=== PATIENT | male | born 1955 | race Hispanic/Latino ===

== ENCOUNTER 2017-09-22 11:57 | Observation (INO) | payer OTHER, SELFPAY ==
[2017-09-22 12:47] LABS: Bilirubin Negative (Negative); Blood, Urine Trace (Negative); Glucose, Urine (Dipstick) Negative (Negative); Ketone, Urine Negative (Negative); Nitrite Negative (Negative); Protein, Urine (Dipstick) Negative (Neg-Trace)
[2017-09-22 12:57] LABS: Bacteria/HPF None Seen HPF (None Seen); RBC/HPF 0-3 HPF (0-3); Squamous Epithelial None Seen HPF (0-3); WBC/HPF 0-3 HPF (0-3)
[2017-09-22 13:18] LABS: #Basophils 0.1 thou/uL (0.0-0.2); #Eosinphils 0.1 thou/uL (0.0-0.7); #Lymphocytes 1.2 thou/uL (1.20-3.40); #Monocytes 0.7 thou/uL (0.11-0.59); #Neutrophils 6.7 thou/uL (1.40-6.50); %Basophils 0.9 % (0.0-1.0); %Eosinophils 1.1 % (0.0-10.0); %Lymphocytes 14.2 % (21.0-51.0); %Monocytes 7.4 % (0.0-10.0); Hematocrit 42.1 % (42.0-52.0); Mean Platelet Volume 7.4 fL (7.4-10.4); Red Blood Cell (RBC) Count 4.76 mill/uL (4.70-6.10); White Blood Cell (WBC) Count 8.7 thou/uL (4.8-10.8)
--- NOTE | 2017-09-22 13:20 | ULT ---
ULTRASOUND TESTICULAR WITH DOPPLER: Date: 09/22/17 HISTORY: Right testicular pain. COMPARISON: None. TECHNIQUE: Real-time Vela scale and color with spectral analysis of the testicles performed with the linear tra nsducer. FINDINGS: Right testicle measures 3.8 x 3.1 x 2.7 cm. Left testicle measures 3.7 x 2.7 x 2.5 cm. Small epididy mal head cyst on the right. Both epididymides are visualized and have normal size. The right testicle is hypervascular, as well as the right epididymis. Small hydroceles bilaterally. Mild skin thickening asymmetric over the right testicle. IMPRESSION: Right-sided epididymal orchitis. POS: [facility]
[2017-09-22] MEDS ORDERED: Ciprofloxacin Lactate/D5W 400 mg/200 ml Premix ONE (13:29)
[2017-09-22 13:32] LABS: ALT (SGPT) 15 U/L (8-55); AST (SGOT) 13 U/L (5-34); Alkaline Phosphatase 78 U/L (40-150); Anion Gap 14 mmol/L (10-20); BUN (Urea Nitrogen) 12 mg/dL (8.4-25.7); Bilirubin, Total 0.4 mg/dL (0.2-1.2); Calc. Creatinine Clearance 0 mL/min (70-130); Carbon Dioxide 27 mmol/L (23-31); Chloride 103 mmol/L (98-107); Estimated GFR-MDRD Greater than 90; Protein, Total 6.9 g/dL (5.8-8.1)
[2017-09-22] MEDS ORDERED: Ondansetron HCl/PF 4 MG/2 ML Vial ONE (14:04)
[2017-09-22] MEDS ORDERED: Ondansetron ODT 4 MG TAB SL PRN (16:02)
[2017-09-22] MEDS ORDERED: Acetaminophen 325 MG TAB PO PRN (16:02)
[2017-09-22] MEDS ORDERED: Ondansetron HCl/PF 4 MG/2 ML Vial IVP PRN (16:02)
[2017-09-22 16:16] VITALS: BMI 31.7
[2017-09-22] MEDS ORDERED: HYDROcodone/Acetaminophen 5/325 mg Tablet PO PRN (16:53)
--- NOTE | 2017-09-22 18:58 | HP ---
DATE OF ADMISSION: 09/22/2017 ADMITTING PHYSICIAN: Dr. Merlin Escalante. PRIMARY CARE PHYSICIAN: Harpal. CHIEF COMPLAINT: Right testicular pain and flank pain. HISTORY OF PRESENT ILLNESS: Mr. Cotter is a 62-year-old gentleman, who came to the emergency [facility] this past Friday complaining of pain in his right testicle with no fever, no dysuria, no hemat uria, no urethral discharge. The patient noted that beginning last Friday he was having back and flank pain. His daughter is an RN and brought him into the health facility for assessment. Kassidy marcelino was diagnosed with UTI and given Bactrim and Rocephin. Cultures came back which showed a microbia l agent that was resistant to cephalosporins and Bactrim. The patient was started on Cipro p.o. Th e patient also has a history of BPH. He has not been on tamsulosin. He denies chest pain, shortnes s of breath, diaphoresis or any other review of systems. PAST MEDICAL HISTORY: Significant for essential hypertension. ALLERGIES: PENICILLINS. HOME MEDICATIONS: Lisinopril 10 mg every day, metoprolol 25 mg b.i.d., and recently tamsulosin 0.4 mg once a day. REVIEW OF SYSTEMS: The following complete review of systems was negative, unless otherwise mentioned in the HPI or belo w: Constitutional: Weight loss or gain, sense of well-being, ability to conduct usual activities, exer cise tolerance. Skin/Breast: Rash, itching, changes in hair growth or loss, nail changes, breast lumps, tenderness, swelling, nipple discharge. Eyes: Vision, double vision, tearing, blind spots, pain. ENT/Mouth: Headaches (location, time of onset, duration, precipitating factors), vertigo, lighthead edness, injury. Vision, double vision, tearing, blind spots, pain, nose bleeding, colds, obstructio n, discharge, dental difficulties, gingival bleeding, dentures, neck stiffness, pain, tenderness, ma sses in thyroid or other areas Cardiovascular: Precordial pain, substernal distress, palpitations, syncope, dyspnea on exertion, o rthopnea, nocturnal paroxysmal dyspnea, edema, cyanosis, hypertension, heart murmurs, varicosities, phlebitis, claudication. Respiratory: Pain, shortness of breath, wheezing, stridor, cough, hemoptysis, fever or night sweats Gastrointestinal: Poor appetite, dysphagia, indigestion, abdominal pain, heartburn, eructation, [place]izabeth sea, vomiting, hematemesis, jaundice, constipation, or diarrhea, abnormal stools (pelon-colored, promise y, bloody, greasy, foul smelling), flatulence, hemorrhoids, recent changes in bowel habits. Genitourinary: Urgency, frequency, dysuria, nocturia, hematuria, polyuria, oliguria, unusual (or ch angelo in) color of urine, stones, hesitancy, change in size of stream, dribbling, acute retention or incontinence, libido, potency. Musculoskeletal: Pain, swelling, redness or heat of muscles or joints, limitation, of motion, muscu lar weakness, atrophy, cramps. Neurologic/Psychiatric: Convulsions, paralyses, tremor, incoordination, parasthesias, difficulties with memory of speech, sensory or motor disturbances, or muscular coordination (ataxia, tremor), emo tional problems, anxiety, depression, previous psychiatric care, unusual perceptions, hallucinations . Allergy/Immunologic: Skin rash, anemia, bleeding tendency, polydipsia, polyuria, intolerance to hea t or cold. PHYSICAL EXAMINATION: VITAL SIGNS: Temperature of 99.1, blood pressure 152/92, pulse 60, respirations 18, satting 98% on room air. CONSTITUTIONAL: The patient is in no acute distress, pleasant, cooperative. HEENT: Normocephalic, atraumatic. EYES: PERRL. Extraocular muscles intact. Conjunctivae normal, sclerae are normal. ENT: Pharynx exam normal. Uvula exam normal. Tonsil exam normal. NECK: Full range of motion. Trachea midline. No carotid bruits. No meningeal signs. No JVD. CHEST: No wheezing, no rales, no rhonchi. CARDIOVASCULAR: Heart sounds normal, no murmurs, rubs or gallops. ABDOMEN: Nontender, nondistended. Normoactive bowel sounds x4. GENITOURINARY: The patient does have a hard right testicle. EXTREMITIES: There is some erythema present as well. Otherwise, no penile discharge. LABORATORY IMAGES: CBC shows a white count of 8.7, hemoglobin 14.3, hematocrit 42.1, platelets 159, 76% neutrophils. Chemistry: Sodium 140, potassium 4.3, chloride 103, CO2 of 27, BUN 12, creatinin e 0.75, glucose 99. C-reactive protein of 5.24. Urinalysis yellow, clear, trace blood, trace leuko cytes, no bacteria seen. Patient also had a testicular ultrasound which was negative for torsion an d a testicular ultrasound did show right-sided epididymal orchitis. ASSESSMENT: 1. Orchitis. 2. Possible acute pyelonephritis and benign prostatic hypertrophy and hypertension. PLAN: The patient admitted to medical unit. He will be treated with IV ciprofloxacin. We will con tinue the patient's home medication regimen to treat his hypertension. The genitourinary physician has been consulted. The Urology will assess and we will follow their suggestions accordingly.
[2017-09-22] MEDS ORDERED: Tamsulosin HCl 0.4 MG CAP PO SCH (21:00)
--- NOTE | 2017-09-22 21:37 | CON ---
DATE OF CONSULTATION: 09/22/2017 REASON FOR CONSULTATION: Right scrotal pain and swelling. HISTORY OF PRESENT ILLNESS: Mr. Cotter is a 62-year-old gentleman with a known history of BPH. He has been on Flomax, halfway. He also has a prior history of prostate needle biopsy couple of year s ago that was negative. Five days ago, he developed systemic symptoms of infection with diminished energy and low-grade fever and associated right testicular pain. He also had some mild dysuria. Isaura scott was seen at an outside clinic where he was given an antibiotic injection. His symptoms did not im prove significantly and eventually presented here at [facility] in [place], [place]. Apparently, a urine culture was obtained during some point prior to admission and E. coli has been d iagnosed. He also had a scrotal ultrasound demonstrates findings consistent with right epididymal o rchitis. There is no prior history of epididymal orchitis. His pain is improved. Overall, he feel s much better now. PAST MEDICAL HISTORY: Consistent with hypertension. PAST SURGICAL HISTORY: Hernia repair. SOCIAL HISTORY: He drinks alcohol on a social basis only. He denies drug use. He quit cigarettes over 10 years ago. ALLERGIES: PENICILLIN. FAMILY HISTORY: Prostate problems in his father. REVIEW OF SYSTEMS: RESPIRATORY: No shortness of breath. CARDIOVASCULAR: No chest pain or palpitations. GASTROINTESTINAL: Denies chronic constipation or diarrhea. PHYSICAL EXAMINATION: GENERAL: He is awake and alert, is in no distress at this time. HEENT: Normocephalic and atraumatic. NECK: Supple without masses. CHEST: Clear to auscultation. CARDIOVASCULAR: No murmurs. ABDOMEN: Soft and nontender. No palpable masses. GENITOURINARY: Penis without lesions. Left testicle normal, right testicle indurated. DIGITAL RECTAL EXAMINATION: Normal anal sphincter tone. IMPRESSION: Mr. Cotter is a 62-year-old gentleman with acute right epididymal orchitis. Culture i s sensitive to Cipro. I recommend three-week course of antibiotic therapy. No indication for surgi chandni intervention at this time. Recommendation through a course of culture-specific antibiotic thera py.
[2017-09-23 06:06] LABS: #Basophils 0.1 thou/uL (0.0-0.2); #Eosinphils 0.2 thou/uL (0.0-0.7); #Lymphocytes 1.8 thou/uL (1.20-3.40); #Monocytes 0.7 thou/uL (0.11-0.59); #Neutrophils 5.2 thou/uL (1.40-6.50); %Eosinophils 2.7 % (0.0-10.0); %Lymphocytes 22.9 % (21.0-51.0); %Monocytes 8.2 % (0.0-10.0); Anion Gap 11 mmol/L (10-20); BUN (Urea Nitrogen) 15 mg/dL (8.4-25.7); Calc. Creatinine Clearance 133 mL/min (70-130); Calcium 8.5 mg/dL (7.8-10.44); Carbon Dioxide 25 mmol/L (23-31); Chloride 105 mmol/L (98-107); Estimated GFR-MDRD Greater than 90; Hematocrit 42.5 % (42.0-52.0); Mean Platelet Volume 7.1 fL (7.4-10.4); Red Blood Cell (RBC) Count 4.61 mill/uL (4.70-6.10); White Blood Cell (WBC) Count 7.9 thou/uL (4.8-10.8)
[2017-09-23] MEDS ORDERED: Tamsulosin HCl 0.4 MG CAP PO SCH (09:00)
[2017-09-23] MEDS ORDERED: Losartan Potassium 25 MG TAB PO SCH (09:00)
[2017-09-23 11:58] VITALS: BP 133/81; TEMP 97.9
--- NOTE | 2017-09-23 12:52 | DIS ---
DATE OF ADMISSION: 09/22/2017 DATE OF DISCHARGE: 09/23/2017 PRIMARY CARE PHYSICIAN: Dr. Zhang Duran. DISCHARGE DISPOSITION: Home. PRIMARY DISCHARGE DIAGNOSIS: Acute right epididymo-orchitis. SECONDARY DISCHARGE DIAGNOSES: Hypertension, opacity, benign enlargement of prostate. PRIMARY PROCEDURE/OPERATION: None. RADIOLOGICAL INVESTIGATION: Testicular ultrasound which showed right epididymo-orchitis. SIGNIFICANT LABS: WBC 7.9, hemoglobin 13.9, platelets 154. Sodium 137, potassium 4.1, BUN 15, crea tinine 0.74, calcium 8.5. LFTs normal. CRP 5.24. Urinalysis: Leukocyte esterase trace. Urine cu lture negative. DISCHARGE MEDICATIONS: Cipro 500 mg p.o. b.i.d. for 3 weeks, Cozaar 50 mg p.o. daily, Toprol-XL 25 mg p.o. b.i.d., Flomax 0.4 mg p.o. daily. CONTRAINDICATIONS: None. CODE STATUS: FULL CODE. INPATIENT CONSULTANTS: Dr. Jose Talavera was consulted while in hospital. TEST RESULTS PENDING ON DISCHARGE: None. ALLERGIES: No known drug allergies. DISCHARGE PLAN: Post hospital, the patient is advised to follow with Dr. Jose Talavera, primary [facility] physician. HOSPITAL COURSE: A 62-year-old male with the above mentioned medical problems, who was admitted by Dr. Merlin Escalante. Please see his H\T\P for further details. The patient was having right-sided prema ticular pain and that is why he came to the emergency room. The patient had a testicular ultrasound in the emergency room, which showed right epididymo-orchitis. Patient was admitted to [facility]. He was treated with IV antibiotic therapy with Cipro while in hospital. His culture of the urin e grew organism that was sensitive to Cipro. This patient is also evaluated by Urology and they rec ommended to treat 3 weeks of oral Cipro therapy. Patient's pain is significantly improved with IV antibiotic therapy. Patient is afebrile and hemody namically stable. The patient is seen and examined at bedside today. PHYSICAL EXAMINATION: VITAL SIGNS: Currently, temperature 97.9, pulse 56, respiratory rate 20, saturation 99%, blood pres sure 133/81. GENERAL: The patient is currently alert, awake, in no acute distress. HEAD: Normocephalic, atraumatic. LUNGS: Clear. CARDIAC: S1, S2 regular without any murmur. ABDOMEN: Soft and benign. EXTREMITIES: No edema. NEUROLOGIC: Nonfocal examination. The patient is medically stable for discharge today.
== END 2017-09-23 13:31 | disposition home or self-care (01) ==
LOC: SCSER 11:57 → INTOOBSV 13:45 → T4-A 13:45
PROVIDERS: ADMIT Internal Medicine Addiction Medicine; ATTEND Internal Medicine Addiction Medicine
DX: N45.3 Epididymo-orchitis (principal); I10 Essential (primary) hypertension; N40.0 Benign prostatic hyperplasia without lower urinary tract symptoms; Z88.0 Allergy status to penicillin; Z91.018 Allergy to other foods; Z79.899 Other long term (current) drug therapy; Z98.890 Other specified postprocedural states; Z87.891 Personal history of nicotine dependence
CPT/HCPCS: 36415; 76870; 80048; 80053; 81003; 81015; 85025; 86140; 87086; 93976; 96365; 96366; 96375; G0378; J0744; J2270; J2405

== ENCOUNTER 2020-01-03 19:30 | Outpatient (CLI) | payer MEDICARE | END 2020-01-03 19:31 | disposition home or self-care (01) | LOC: SLEEPLAB 19:30 | PROVIDERS: ATTEND Family Medicine | DX: G47.33 Obstructive sleep apnea (adult) (pediatric) (principal); R06.83 Snoring; E66.9 Obesity, unspecified; I10 Essential (primary) hypertension; G47.69 Other sleep related movement disorders | CPT/HCPCS: 95811 ==

== ENCOUNTER 2025-10-11 00:06 | Emergency (ER) | payer MEDICARE | END 2025-10-11 03:34 | disposition left against medical advice (07) | LOC: ERS 00:06 | DX: Z53.21 Procedure and treatment not carried out due to patient leaving prior to being seen by health care provider (principal) ==